=== PATIENT | male | born 1980 | race American Indian/Alaskan Native ===

== ENCOUNTER 2020-10-05 10:49 | Emergency (ER) | payer OTHER ==
--- NOTE | 2020-10-05 13:55 | Emergency Department Report ---
ED General Adult HPI - General Chief complaint: Headache Stated complaint: BODY PAIN/SINUS PRESSURE Time Seen by Provider: 10/05/20 13:54 Source: patient Mode of arrival: Ambulatory Limitations: No Limitations - History of Present Illness Initial comments: 40-year-old male who denies any significant past medical history presents to the ER today with a complaint of a 2 to 3-day history of generalized body aches, sinus pressure with postnasal drainage, productive cough and loss of appetite. Patient states that he thinks he may have a sinus infection because during this time he is prone to getting sinus infections. He denies any fever or chills. He reports no chest pain, shortness of breath, vomiting or diarrhea. He denies any ill contacts or recent travel and no known COVID-19 contacts. He did not get the COVID-19 vaccine and he has not got a test since he has been sick. Complaint: Bodyaches /Sinus -: days(s) (2-3) - Related Data Previous Rx's Medication Instructions Recorded Last Taken Type Azithromycin [Zithromax TAB] 250 mg PO QDAY 5 Days #6 tablet 05/30/19 Unknown Rx Oseltamivir [Tamiflu] 75 mg PO BID 5 Days #10 cap 05/30/19 Unknown Rx Amoxicillin/Potassium Clav 1 each PO BID 7 Days #14 tablet 10/05/20 Unknown Rx [Augmentin 875-125 Tablet] Fluticasone [Flonase] 2 spray NS QDAY #1 bottle 10/05/20 Unknown Rx Ketorolac [Toradol] 10 mg PO Q6H PRN #20 tablet 10/05/20 Unknown Rx Allergies Allergy/AdvReac Type Severity Reaction Status Date / Time No Known Allergies Allergy Unverified 05/30/19 21:02 ED Review of Systems ROS: Stated complaint: BODY PAIN/SINUS PRESSURE Other details as noted in HPI Comment: All other systems reviewed and negative Constitutional: denies: chills, diaphoresis, fever, malaise, weakness Eyes: denies: eye pain, eye discharge, vision change ENT: congestion. denies: ear pain, throat pain, dental pain, hearing loss, epistaxis Respiratory: cough. denies: orthopnea, shortness of breath, SOB with exertion, SOB at rest, wheezing Cardiovascular: denies: chest pain, palpitations, dyspnea on exertion, edema, syncope, paroxysmal nocturnal dyspnea Gastrointestinal: denies: abdominal pain, nausea, vomiting, diarrhea, constipation, hematemesis, hematochezia Musculoskeletal: myalgia Skin: denies: rash, lesions, change in color, change in hair/nails, pruritus Neurological: headache. denies: numbness, paresthesias, confusion, abnormal gait, vertigo Psychiatric: denies: anxiety, depression, auditory hallucinations, visual hallucinations, homicidal thoughts, suicidal thoughts Hematological/Lymphatic: denies: easy bleeding, easy bruising, swollen glands ED Past Medical Hx - Past Medical History Previous Medical History?: No - Surgical History Past Surgical History?: No - Social History Smoking Status: Never Smoker Substance Use Type: None - Medications Home Medications: Home Medications Medication Instructions Recorded Confirmed Last Taken Type Azithromycin [Zithromax TAB] 250 mg PO QDAY 5 Days #6 tablet 05/30/19 Unknown Rx Oseltamivir [Tamiflu] 75 mg PO BID 5 Days #10 cap 05/30/19 Unknown Rx Amoxicillin/Potassium Clav 1 each PO BID 7 Days #14 tablet 10/05/20 Unknown Rx [Augmentin 875-125 Tablet] Fluticasone [Flonase] 2 spray NS QDAY #1 bottle 10/05/20 Unknown Rx Ketorolac [Toradol] 10 mg PO Q6H PRN #20 tablet 10/05/20 Unknown Rx ED Physical Exam - General Limitations: No Limitations General appearance: alert, in no apparent distress - Head Head exam: Present: atraumatic, normocephalic, normal inspection - Eye Eye exam: Present: normal appearance, PERRL, EOMI Pupils: Present: normal accommodation - ENT ENT exam: Present: normal exam, mucous membranes moist, other (Mild tenderness palpation to the frontal and maxillary sinuses) - Expanded ENT Exam Expanded TM/Canal exam: Effusion: Right TM, Left TM - Neck Neck exam: Present: normal inspection, full ROM. Absent: meningismus, lymphadenopathy - Respiratory Respiratory exam: Present: normal lung sounds bilaterally. Absent: respiratory distress, wheezes, rales, rhonchi - Cardiovascular Cardiovascular Exam: Present: regular rate, normal rhythm, normal heart sounds - GI/Abdominal GI/Abdominal exam: Present: soft. Absent: distended, tenderness, guarding, rebound - Neurological Exam Neurological exam: Present: alert, oriented X3, CN II-XII intact, normal gait - Psychiatric Psychiatric exam: Present: normal affect, normal mood - Skin Skin exam: Present: intact ED Course Vital Signs 10/05/20 12:49 Temperature 98.7 F Pulse Rate 92 H Respiratory 18 Rate Blood Pressure 123/86 O2 Sat by Pulse 100 Oximetry Critical care attestation.: If time is entered above; I have spent that time in minutes in the direct care of this critically ill patient, excluding procedure time. ED Disposition Clinical Impression: Viral syndrome, Sinusitis Disposition: DC-01 TO HOME OR SELFCARE Is pt being admited?: No Does the pt Need Aspirin: No Condition: Stable Instructions: Sinusitis, Adult, [id number], Viral Illness, Adult Additional Instructions: Take the antibiotics, the Flonase and the Toradol as prescribed. You can take Robitussin or Mucinex from [id number] to help with cough. I would also recommend that you get an outpatient COVID-19 test. In the meantime continue to drink lots of fluids to maintain hydration. Continue to take your multivitamin. Follow-up with primary care doctor listed on your discharge instructions. Return to the ER if your symptoms changes or worsens in any way. Prescriptions: Amoxicillin/Potassium Clav [Augmentin 875-125 Tablet] 1 each PO BID 7 Days #14 tablet Fluticasone [Flonase] 2 spray NS QDAY #1 bottle Ketorolac [Toradol] 10 mg PO Q6H PRN #20 tablet PRN Reason: Pain Referrals: [facility] [Provider Group] - 3-5 Days Forms: Work/School Release Form(ED) Time of Disposition: 14:02
== END 2020-10-05 14:30 | disposition home or self-care (01) ==
LOC: ED 10:49
CPT/HCPCS: 99281